=== PATIENT | male | born 2005 | race African-American/Black ===

== ENCOUNTER 2023-07-29 17:30 | Emergency (ER) | payer BC, MEDICAID, OTHER ==
[~2023-07-29] VITALS: Ht 188 cm; Wt 75.0 kg
[2023-07-29 17:34] VITALS: BP 150/73; PULSE 79; RESP 16; TEMP 98.2; O2SAT 100
[2023-07-29] MEDS ORDERED: CEFTRIAXONE SODIUM 500 MG/VIAL IM ONE (17:45)
[2023-07-29] MEDS ORDERED: LIDOCAINE HCL/PF 1% 10 MG/ML 5ML VIAL INFIL ONE (17:45)
[2023-07-29 18:06] LABS: CLARITY URINE CLOUDY (CLEAR); COLOR URINE YELLOW (YELLOW); GLUCOSE URINE NEGATIVE (NEGATIVE); KETONES URINE TRACE (NEGATIVE); LEUKOCYTE ESTERASE URINE 3+ (NEGATIVE); NITRITE URINE NEGATIVE (NEGATIVE); OCCULT BLOOD URINE TRACE (NEGATIVE); PROTEIN URINE 1+ (NEGATIVE)
[2023-07-29 18:19] LABS: BACTERIA URINE 1+; SQUAMOUS EPITHELIAL CELL URINE FEW /lpf (RARE/1+)
[2023-07-29 18:20] LABS: RBC URINE 0-2 /hpf (0-2); WBC URINE TNTC /hpf (0-2)
[2023-07-29] MEDS ORDERED: DOXY100C5 MT (18:24)
[2023-07-29] MEDS ORDERED: LIDOCAINE HCL/PF 1% 10 MG/ML 5ML VIAL INFIL NR (19:45)
[2023-07-29] MEDS ORDERED: CEFTRIAXONE SODIUM 500 MG/VIAL IM NR (19:45)
[2023-08-01 10:07] LABS: CHLAMYDIA TRACHOMATIS NAA Negative (Negative); NEISSERIA GONORRHOEAE NAA Positive (Negative)
== END 2023-07-29 20:10 | disposition home or self-care (01) ==
LOC: ER 17:30
DX: A54.01 Gonococcal cystitis and urethritis, unspecified (principal)
CPT/HCPCS: 87491; 87591; 81003; 86592; 87086; 96372; 99283; J0696; J3490; Z7610 ×2

== ENCOUNTER 2025-03-08 11:19 | Emergency (ER) | payer BC, MEDICAID ==
[~2025-03-08] VITALS: Ht 190.5 cm; Wt 66.0 kg
[~2025-03-08 11:19] MED LIST: DOXY100C5 MT
[2025-03-08 11:40] VITALS: O2SAT 99
[2025-03-08] MEDS ORDERED: DOXY100C5 MT (12:36)
[2025-03-08] MEDS: DOXYCYCLINE HYCLATE 100MG CAPSULE PO ONE (13:07)
[2025-03-08] MEDS: CEFTRIAXONE SODIUM 500MG VIAL IM ONE (13:07)
[2025-03-08 13:08] VITALS: BP 125/68; PULSE 80; RESP 20; TEMP 36.8; O2SAT 99
[2025-03-11 04:07] LABS: CHLAMYDIA TRACHOMATIS NAA Negative (Negative); NEISSERIA GONORRHOEAE NAA Negative (Negative)
== END 2025-03-08 13:09 | disposition home or self-care (01) ==
LOC: ER 11:19
DX: R36.9 Urethral discharge, unspecified (principal); Z11.3 Encounter for screening for infections with a predominantly sexual mode of transmission; Z79.899 Other long term (current) drug therapy
CPT/HCPCS: 99283; 86592; 87491; 87591; 36415; 96372; J0696

== ENCOUNTER 2025-07-04 14:42 | Emergency (ER) | payer BC, MEDICAID ==
[~2025-07-04] VITALS: Ht 190.5 cm; Wt 72.0 kg
[2025-07-04 14:51] VITALS: TEMP 36.6; O2SAT 98
[2025-07-04 17:42] LABS: CLARITY URINE CLEAR (CLEAR); COLOR URINE YELLOW (YELLOW); GLUCOSE URINE NEGATIVE (NEGATIVE); KETONES URINE TRACE (NEGATIVE); LEUKOCYTE ESTERASE URINE 2+ (NEGATIVE); NITRITE URINE NEGATIVE (NEGATIVE); OCCULT BLOOD URINE NEGATIVE (NEGATIVE); PH URINE 7.0 (4.5-8.0); PROTEIN URINE TRACE (NEGATIVE); SPECIFIC GRAVITY URINE 1.026 (1.005-1.030); UROBILINOGEN URINE 1.0 E.U./dL (0.2-1.0)
[2025-07-04 18:10] LABS: BACTERIA URINE 1+; RBC URINE 0-2 /hpf (0-2); SQUAMOUS EPITHELIAL CELL URINE FEW /lpf (RARE/1+); WBC URINE 50-100 /hpf (0-2)
[2025-07-04] MEDS ORDERED: DOXY100T2 MT (18:48)
[2025-07-04] MEDS: CEFTRIAXONE SODIUM 500MG VIAL IM ONE (19:18)
[2025-07-04] MEDS: PENICILLIN G BENZATHINE 2,400,000 UNITS/4ML SYR IM ONE (19:32)
[2025-07-04] MEDS ORDERED: CEFP200T13 MT (19:55)
[2025-07-04 20:06] VITALS: BP 130/70; PULSE 72; RESP 16; O2SAT 97
[2025-07-06 13:10] LABS: HSV TYPE 2 SPECIFIC AB IGG Reactive (Non Reactive)
[2025-07-07 06:08] LABS: CHLAMYDIA TRACHOMATIS NAA Negative (Negative); NEISSERIA GONORRHOEAE NAA Positive (Negative)
== END 2025-07-04 20:08 | disposition home or self-care (01) ==
LOC: ER 14:42
DX: Z11.3 Encounter for screening for infections with a predominantly sexual mode of transmission (principal); Z79.899 Other long term (current) drug therapy
CPT/HCPCS: 99284; 86592; 86695; 86696; 87491; 87591; 81003; 87086; 36415; 96372; J0561; J0696